=== PATIENT | female | born 2000 | race African-American/Black ===

== ENCOUNTER 2023-01-09 23:42 | Emergency (ER) | payer OTHER ==
[~2023-01-09] VITALS: Ht 170.2 cm; Wt 118.8 kg
[2023-01-09] MEDS ORDERED: MIDAZOLAM INJ 2MG/2ML VIAL IM ONE (23:55)
[2023-01-09] MEDS ORDERED: UNRESOLVED CLARIFICATION ENTRY XX STA (23:59)
[2023-01-10 00:54] LABS: HEMATOCRIT 39.3 % (36.0-47.0); HEMOGLOBIN 13.1 g/dl (12.0-15.5); MEAN CORPUSCULAR HEMOGLOBIN 30.3 pg (27.0-33.0); MEAN CORPUSCULAR HGB CONC 33.3 g/dl (32.0-36.5); PLATELET COUNT, AUTOMATED 264 10^3/uL (150-450); RED BLOOD COUNT 4.32 10^6/uL (4.00-5.40); WHITE BLOOD COUNT 16.2 10^3/uL (4.0-10.0)
[2023-01-10 01:07] LABS: ETHYL ALCOHOL (ETHANOL) 0.004 % (0.000-0.010)
[2023-01-10 01:08] LABS: ACETAMINOPHEN LEVEL 19.6 UG/ML (10.0-20.0); ALBUMIN 3.7 G/DL (3.2-5.2); ALKALINE PHOSPHATASE 74 U/L (46-116); ALT/SGPT 26 U/L (7.0-40); AST/SGOT 20 U/L (<34); BILIRUBIN,DIRECT 0.1 MG/DL (<0.4); BILIRUBIN,TOTAL 0.3 MG/DL (0.3-1.2); BLOOD UREA NITROGEN 13 MG/DL (9-23); CALCIUM LEVEL 9.2 MG/DL (8.5-10.1); CARBON DIOXIDE LEVEL 22 MMOL/L (20-31); CHLORIDE LEVEL 106 MMOL/L (98-107); CREATININE FOR GFR 0.77 MG/DL (0.55-1.30); GLOMERULAR FILTRATION RATE > 60.0 (>60); GLUCOSE, FASTING 73 MG/DL (60-100); POTASSIUM SERUM 3.9 MMOL/L (3.5-5.1); SALICYLATE LEVEL < 3.0 MG/DL (<30); SODIUM LEVEL 140 MMOL/L (136-145)
[2023-01-10 01:41] LABS: HCG, SERUM QUALITATIVE NEGATIVE (NEGATIVE)
[2023-01-10 01:59] LABS: AMPHETAMINES LEVEL URINE NEGATIVE (NEGATIVE); BARBITURATES URINE NEGATIVE (NEGATIVE); COCAINE METABOLITE URINE NEGATIVE (NEGATIVE)
[2023-01-10 02:00] LABS: BENZODIAZEPINES URINE POSITIVE (NEGATIVE); CANNABINOIDS URINE NEGATIVE (NEGATIVE); METHADONE URINE NEGATIVE (NEGATIVE); OPIATES URINE NEGATIVE (NEGATIVE); PHENCYCLIDINE URINE NEGATIVE (NEGATIVE)
[2023-01-10 09:36] VITALS: BP 141/90; TEMP 97.4; O2SAT 99
== END 2023-01-10 11:50 | disposition home or self-care (01) ==
LOC: M ED 23:42
DX: F39 Unspecified mood [affective] disorder (principal)
CPT/HCPCS: 36415; 80048; 80076; 80143; 80307; 82077; 84443; 84703; 85027; 87635; 93041; 94760; 96372; 99285; J2250